=== PATIENT | female | born 1970 | race Caucasian/White ===

== ENCOUNTER → 2021-07-29 14:23 | Outpatient (CLI) | payer OTHER, SELFPAY ==
[2021-07-29 15:18] LABS: COVID19 -Nasal RAPID POSITIVE (Negative)
== END ==
PROVIDERS: Visit Provider Physician Assistant
DX: U07.1 COVID-19 (principal)
CPT/HCPCS: 87635

== ENCOUNTER → 2021-10-07 15:20 | Outpatient (CLI) | payer OTHER, SELFPAY | PROVIDERS: Referring Provider Internal Medicine; Visit Provider Internal Medicine | DX: Z23 Encounter for immunization (principal) | CPT/HCPCS: 90471; 90686 ==

== ENCOUNTER → 2022-09-11 13:13 | Outpatient (CLI) | payer OTHER, SELFPAY | PROVIDERS: Referring Provider Internal Medicine; Visit Provider Internal Medicine | DX: Z23 Encounter for immunization (principal) | CPT/HCPCS: 90471; 90686 ==

== ENCOUNTER → 2022-11-13 06:26 | Outpatient (CLI) | payer OTHER, SELFPAY ==
[2022-11-13 08:10] LABS: Hemoglobin 15.3 g/dL (12.0-16.0); Mean Corpuscular HGB Conc 34.9 % (30-36); Mean Corpuscular Hemoglobin 28.6 PG (26-34); Platelet Count 363 X10^3/uL (150-400); Red Blood Cell Count 5.36 X10^6/uL (4.0-5.2); Red Cell Distribution Width 13.1 % (11.6-14.8); White Blood Cell Count 7.4 X10^3/uL (4.5-11.0)
[2022-11-13 08:48] LABS: Alanine Aminotransferase 62 IU/L (<35); Albumin 4.4 g/dL (3.5-5.0); Albumin Globulin Ratio 1.3 (1.0-2.8); Alkaline Phosphatase 88 U/L (38-126); Aspartate Aminotransferase 37 IU/L (14-36); BUN Creatinine Ratio 17.8 (6-22); Blood Urea Nitrogen 13 mg/dL (7-17); Calcium 9.3 mg/dL (8.4-10.2); Carbon Dioxide 25 mmol/L (22-32); Chloride 103 mmol/L (98-107); Cholesterol 259 mg/dL (140-199); Estimated Glomerular Filt Rate > 60 mL/min (>60); Globulin 3.4 g/dL (1.7-4.1); Glucose 116 mg/dL (70-100); HDL Cholesterol 64 mg/dL (40-60); HEMOLYSIS < 15 (0-50); LDL Cholesterol Calculated 172 mg/dL (<100); Potassium 4.5 mmol/L (3.4-5.1); Sodium 138 mmol/L (137-145); Total Protein 7.8 g/dL (6.3-8.2); Triglycerides 116 mg/dL (35-150)
[2022-11-13 09:19] LABS: TSH w/ Reflex to FT4 2.72 uIU/mL (0.47-4.68)
== END ==
PROVIDERS: Referring Provider Registered Nurse Diabetes Educator; Visit Provider Registered Nurse Diabetes Educator
DX: E78.5 Hyperlipidemia, unspecified (principal); I10 Essential (primary) hypertension
CPT/HCPCS: 36415; 80053; 80061; 84443; 85027

== ENCOUNTER → 2022-12-08 14:50 | Outpatient (CLI) | payer OTHER, SELFPAY ==
--- NOTE | 2022-12-08 14:52 | DI.MG.S_ITS ---
BILATERAL DIGITAL SCREENING MAMMOGRAM 3D/2D WITH CAD: 12/08/2022 CLINICAL: Routine screening. Comparison is made to exams dated: 06/18/2017 mammogram and 06/24/2015 mammogram - [facility]. There are scattered areas of fibroglandular density in both breasts (category b / 25%-50% glandular tissue). Current study was also evaluated with a Computer Aided Detection (CAD) system. No significant masses, calcifications, or other findings are seen in either breast. There has been no significant interval change. IMPRESSION: NEGATIVE There is no mammographic evidence of malignancy. A 1 year screening mammogram is recommended. Based on the Tyrer Cuzick model (a risk assessment model) the patient's lifetime risk is 6.1% and her 10 year risk is 1.5%. According to the ACR, ACS, and NCCN guidelines, an annual breast MRI exam along with mammogram is recommended if the patient's lifetime risk is 20% or greater. This exam was interpreted at Station ID: [id number]. NOTE: For mammograms, a report in lay terms will be sent to the patient. Approximately 15% of breast malignancies will not be visualized mammographically. In the management of a palpable breast mass, a negative mammogram must not discourage biopsy of a clinically suspicious lesion. Electronically Signed By: Tawanda xie/derrick:12/08/2022 17:03:52 letter sent: Normal Exam ACR BI-RADS Category 1: Negative 3341F
== END ==
PROVIDERS: PCP Registered Nurse Diabetes Educator; Referring Provider Registered Nurse Diabetes Educator; Visit Provider Registered Nurse Diabetes Educator
DX: Z12.31 Encounter for screening mammogram for malignant neoplasm of breast (principal)
CPT/HCPCS: 77063; 77067

== ENCOUNTER 2023-01-12 07:16 | Day surgery (SDC) | payer OTHER, SELFPAY ==
--- NOTE | 2023-01-12 | PATH_ITS ---
[facility] Accession Number: [id number] No. of containers..01 Tissue . 01 Material submitted: . colon - SIGMOID COLON POLYP X2 . 01 Diagnosis: Sigmoid Colon, Polyp x2, Biopsy: Fragments of tubular adenoma and hyperplastic polyp. [facility] 01/18/2023 0938 Local . 01 Electronically signed: . Wendie Torres MD, Pathologist NPI- [id number] . 01 Gross description: . SIGMOID COLON POLYP X2: Received in formalin are 4 fragment(s) of tolentino, soft tissue measuring 0.3 x 0.2 x 0.2 cm to 0.2 x 0.1 x 0.1 cm submitted entirely in 1 cassette(s) /CPE 01/14/2023 0723 Local . 01 Pathologist provided ICD-10: D12.5 . 01 CPT . 786975 Specimen Comment: A courtesy copy of this report has been sent to [phone] Performed at: 01 [facility] [address] [place] [address] [address], [place], [place] [id number] MD Paddy Albarran MD Phone: [phone]
[2023-01-12 07:44] VITALS: BP 178/95; PULSE 76; RESP 16; TEMP 36.2; O2SAT 97; BMI 51.0
[2023-01-12] MEDS: LACTATED RINGERS 1,000 ML 200 ML IV (07:55)
--- NOTE | 2023-01-12 08:24 | PM.HP.1 ---
History of Present Illness History of Present Illness Date Patient Seen: 01/12/23 Time Patient Seen: 08:24 Chief complaint: Screening Colonoscopy Narrative: The patient presents for colorectal screening. They have never had any previous examination for such. No personal or family history of colon cancer. On further history denies any recent gastrointestinal symptoms. No nausea, vomiting, abdominal pain, loss of appetite, unexplained weight loss, change in bowel habits, or blood per rectum. Patient History Medical History Anemia (~2013) Basal cell carcinoma (~2006) Carpal tunnel syndrome (~2020) Chicken pox (~1986) Dyslipidemia Essential hypertension GERD (gastroesophageal reflux disease) (~2017) Headache (~2020) Heavy menstrual period (~2017) Impaired fasting blood sugar Ovarian cyst (~1990) Recurrent sinusitis Sleep apnea (~2014) Vision disorder Surgical History Anesthesia History of section (~03/07/95) Family & Social History Family History Father History of heart disease Hypertension Hyperlipidemia Mental health problem Stroke Mother Fibromyalgia Arthritis History of blood clots Diabetes mellitus Hypertension Hyperlipidemia Brother Epilepsy Addiction Hypertension Hyperlipidemia Brother Addiction Grandfather Cancer Grandfather History of heart disease Grandmother History of heart disease Hypertension Hyperlipidemia Family/Other Addiction Family/Other Addiction Social History: household members spouse Tobacco & Substance use: Smoking Status Former smoker alcohol intake never Substance Use Type does not use Meds Home Medications and Allergies Home Medications Medication Instructions Recorded Confirmed Type albuterol sulfate 90 mcg/actuation 2 puff inhalation Q4-6H PRN 11/18/22 01/12/23 Rx aerosol inhaler shortness of breath or wheezing #8.5 grams cetirizine 5 mg-pseudoephedrine ER 1 tab PO DAILY 11/18/22 01/12/23 History 120 mg tablet,extended release,12hr (Zyrtec-D) esomeprazole magnesium 40 mg 40 mg PO DAILY 11/18/22 01/12/23 History capsule,delayed release (Nexium) fluticasone propionate 50 2 spray intranasal DAILY 11/18/22 01/12/23 History mcg/actuation nasal spray,suspension Allergies Allergy/AdvReac Type Severity Reaction Status Date / Time No Known Drug Allergies Allergy Verified 01/12/23 07:39 Exam Vital Signs (past 8 hours): - 01/12/23 07:44 Temperature 97.1 F L Pulse Rate 76 Respiratory Rate 16 Blood Pressure 178/95 H Pulse Oximetry 97 Oxygen Delivery Method Room Air Oxygen Delivery Method Room Air Narrative Exam Narrative: General adult woman alert oriented no acute distress Abdomen soft nontender nondistended Assessment & Plan Assessment & Plan narrative: The patient requires colorectal screening and colonoscopy is recommended. Technical details were discussed. Risks, benefits, alternatives explained. Risks including but not limited to myocardial infarction, aspiration, bleeding, pain, missed lesion, incomplete examination, need for further radiographic studies, colonic perforation, and need for major abdominal surgery were discussed. All questions were answered to their satisfaction, and they are in agreement with this plan. Time Spent With Patient Critical Care time: I spent a total of [] minutes of critical care time on this patient's care today; this time is exclusive of procedural time.
--- NOTE | 2023-01-12 08:29 | PM.OP.COLON ---
Operative Date/Time/Diagnoses Date of procedure: 01/12/23 Time of procedure: 08:29 Pre-op diagnosis: Colorectal screening Post-op diagnosis: other (Colonic polyps x2) Procedure & Clinicians Study performed: Colonoscopy Same procedure as scheduled: Yes Indications: Colorectal screening Surgeon: Michael Monge Procedure Notes Procedure in detail: The history and physical was performed/updated and the patient is ASA class is 2. The procedure was discussed in detail with the patient. Potential risks complications including infection, bleeding, missed diagnosis, perforation, need for surgery, and were explained. Their questions were answered and informed consent was obtained. Patient was brought to the procedure room and placed standard monitoring equipment. The patient's vital signs were monitored continuously throughout the entire procedure. Prior to starting time-out was performed. The patient was placed in the left lateral recumbent position. Procedural sedation was administered by anesthesia. Examination began with a thorough inspection of the perianal area there was no evidence of fissures, fistulae, external hemorrhoids or cutaneous malignancy. The colonoscopy scope was then placed into the anal canal and was advanced to the cecum, which was identified by the ileocecal valve, the appendiceal orifice and the confluence of the taenia. The scope was then slowly withdrawn examining colon thoroughly in all directions, irrigating it of any residual stool. Within the sigmoid colon there were 2 polyps both less than 1 cm which were removed with biopsy forceps in entirety. The colon was notable for bojorquez diverticulosis. The patient tolerated the procedure well. They will be discharged once criteria are met. The prep was of good/excellent quality. The withdrawl time was 7 minutes. Specimen(s): other (Sigmoid colon polyps x2) Complications: none Impression: Colonic polyps x2 Post-procedure Recommendations: High fiber diet Plan for aftercare: Follow-up is dependent on pathology findings Disposition: same day surgery
[2023-01-12 09:05] VITALS: BP 178/112; PULSE 70; RESP 19; TEMP 36.3; O2SAT 97
[2023-01-12 09:11] VITALS: BP 183/106; PULSE 68; RESP 18; TEMP 36.3; O2SAT 98
[2023-01-12 09:17] VITALS: BP 183/106; PULSE 62; RESP 16; TEMP 36.3; O2SAT 93
[2023-01-12 09:25] VITALS: BP 179/95; PULSE 61; RESP 16; TEMP 36.4; O2SAT 99
== END 2023-01-12 09:32 | disposition home or self-care (01) ==
PROVIDERS: PCP Registered Nurse Diabetes Educator; Referring Provider Surgery; Visit Provider Surgery
PROC: 0DJD8ZZ Inspection of Lower Intestinal Tract, Via Natural or Artificial Opening Endoscopic (ICD-10-PCS; CPT 45378; principal; 2023-01-12 08:30)
DX: Z12.11 Encounter for screening for malignant neoplasm of colon (principal); K57.30 Diverticulosis of large intestine without perforation or abscess without bleeding
CPT/HCPCS: 45380; J2704

== ENCOUNTER → 2023-02-10 14:53 | Outpatient (CLI) | payer OTHER, SELFPAY ==
[2023-02-10 16:24] LABS: Alanine Aminotransferase 53 IU/L (<35); Albumin 4.3 g/dL (3.5-5.0); Albumin Globulin Ratio 1.3 (1.0-2.8); Alkaline Phosphatase 80 U/L (38-126); Aspartate Aminotransferase 33 IU/L (14-36); Bilirubin Total 0.7 mg/dL (0.2-1.3); Bilirubin Unconjugated 0.4 mg/dL (0.0-1.1); Globulin 3.2 g/dL (1.7-4.1); Glucose 112 mg/dL (70-100); HEMOLYSIS < 15 (0-50); Total Protein 7.5 g/dL (6.3-8.2)
[2023-02-11 11:00] LABS: Labcorp Hemoglobin (Hb) A1c 5.7 % (4.8-5.6)
== END ==
PROVIDERS: PCP Registered Nurse Diabetes Educator; Referring Provider Registered Nurse Diabetes Educator; Visit Provider Registered Nurse Diabetes Educator
DX: E78.5 Hyperlipidemia, unspecified (principal); R73.01 Impaired fasting glucose; R74.8 Abnormal levels of other serum enzymes
CPT/HCPCS: 36415; 80076; 82947; 83036

== ENCOUNTER → 2023-02-11 06:48 | Outpatient (CLI) | payer OTHER, SELFPAY ==
[2023-02-11 09:02] LABS: Cholesterol 256 mg/dL (140-199); HDL Cholesterol 67 mg/dL (40-60); LDL Cholesterol Calculated 166 mg/dL (<100); Triglycerides 116 mg/dL (35-150)
== END ==
PROVIDERS: PCP Registered Nurse Diabetes Educator; Referring Provider Registered Nurse Diabetes Educator; Visit Provider Registered Nurse Diabetes Educator
DX: E78.5 Hyperlipidemia, unspecified (principal); R73.01 Impaired fasting glucose; R74.8 Abnormal levels of other serum enzymes
CPT/HCPCS: 36415; 80061

== ENCOUNTER → 2023-03-06 12:28 | Outpatient (CLI) | payer OTHER, SELFPAY ==
[2023-03-06 14:18] LABS: HEMOLYSIS < 15 (0-50); Iron 101 ug/dL (37-170)
[2023-03-06 14:29] LABS: Percent Iron Saturation 36 % (15-50); Total Iron Binding Capacity 281 ug/dL (265-497); Transferrin 225 mg/dL (206-381)
[2023-03-06 14:55] LABS: Ferritin 83 ng/mL (11-264)
[2023-03-09 19:50] LABS: Hepatitis B Surface Antigen NEGATIVE s/c (NEGATIVE)
[2023-03-09 20:10] LABS: Hep C Virus Ab w/Reflex Quant NEGATIVE s/c (NEGATIVE)
== END ==
PROVIDERS: PCP Registered Nurse Diabetes Educator; Referring Provider Registered Nurse Diabetes Educator; Visit Provider Registered Nurse Diabetes Educator
DX: R74.8 Abnormal levels of other serum enzymes (principal)
CPT/HCPCS: 36415; 82728; 83540; 83550; 86803; 87340

== ENCOUNTER → 2023-03-12 14:23 | Outpatient (CLI) | payer OTHER, SELFPAY ==
--- NOTE | 2023-03-12 14:24 | DI.US.S_ITS ---
PROCEDURE: US ABDOMEN LIMITED INDICATIONS: RUQ US, ELEVATED LIVER ENZYMES TECHNIQUE: Real-time focused scanning was performed of the abdomen, with image documentation. COMPARISON: None. FINDINGS: The liver demonstrates enlarged size. The liver demonstrates generalized moderately increased echogenicity. This decreases ultrasound sensitivity for detection of hepatic masses. No findings of gallstones or sludge are seen. The gallbladder wall is not thickened, measuring 3 mm or less. No specific pericholecystic fluid is seen. The sonographic Olivia sign is negative. There is no biliary dilatation, the common bile duct measures 5 mm. The pancreas is not well seen, secondary to overlying bowel gas. This study is further limited by body habitus. IMPRESSION: An enlarged, fatty liver can be seen. The gallbladder demonstrates a normal sonographic appearance. No biliary dilatation is seen. Dictated by: Lawson Dasilva M.D. on 03/12/2023 at 15:17 Approved by: Lawson Dasilva M.D. on 03/12/2023 at 15:18
== END ==
PROVIDERS: PCP Registered Nurse Diabetes Educator; Referring Provider Registered Nurse Diabetes Educator; Visit Provider Registered Nurse Diabetes Educator
DX: R74.8 Abnormal levels of other serum enzymes (principal); K76.0 Fatty (change of) liver, not elsewhere classified
CPT/HCPCS: 76705

== ENCOUNTER → 2023-07-14 05:52 | Outpatient (CLI) | payer OTHER, SELFPAY ==
[2023-07-14 08:12] LABS: Hemoglobin A1C% w Est Avg Glu 5.7 % (4.0-6.0)
[2023-07-14 08:15] LABS: Add Manual Diff / Slide Review NO; Basophils Absolute Auto 0 /uL (0-100); Basophils Percent Auto 0.6 % (0-2); Eosinophils Absolute Auto 200 /uL (0-450); Eosinophils Percent Auto 2.1 % (2-4); Hematocrit 42.5 % (36-46); Hemoglobin 14.7 g/dL (12.0-16.0); Lymphocytes Absolute Auto 2300 /uL (1100-4500); Lymphocytes Percent Auto 30.6 % (25-40); Mean Corpuscular HGB Conc 34.5 % (30-36); Mean Corpuscular Hemoglobin 28.1 PG (26-34); Mean Corpuscular Volume 81.5 fL (80-100); Monocytes Absolute Auto 500 /uL (0-900); Monocytes Percent Auto 7.3 % (3-14); Neutrophils Absolute Auto 4400 /uL (1500-7000); Neutrophils Percent Auto 59.4 % (50-75); Platelet Count 345 X10^3/uL (150-400); Red Blood Cell Count 5.21 X10^6/uL (4.0-5.2); Red Cell Distribution Width 13.6 % (11.6-14.8); White Blood Cell Count 7.5 X10^3/uL (4.5-11.0)
[2023-07-14 08:23] LABS: HEMOLYSIS < 15 (0-50); Iron 108 ug/dL (37-170)
[2023-07-14 08:32] LABS: Alanine Aminotransferase 68 IU/L (<35); Albumin 4.6 g/dL (3.5-5.0); Albumin Globulin Ratio 1.6 (1.0-2.8); Alkaline Phosphatase 79 U/L (38-126); Aspartate Aminotransferase 39 IU/L (14-36); BUN Creatinine Ratio 28.4 (6-22); Bilirubin Total 0.9 mg/dL (0.2-1.3); Blood Urea Nitrogen 19 mg/dL (7-17); Calcium 9.5 mg/dL (8.4-10.2); Carbon Dioxide 26 mmol/L (22-32); Chloride 102 mmol/L (98-107); Cholesterol 238 mg/dL (140-199); Estimated Glomerular Filt Rate > 60 mL/min (>60); Globulin 2.9 g/dL (1.7-4.1); Glucose 112 mg/dL (70-100); HDL Cholesterol 49 mg/dL (40-60); HEMOLYSIS < 15 (0-50); LDL Cholesterol Calculated 161 mg/dL (<100); Magnesium 2.1 mg/dL (1.6-2.3); Potassium 3.8 mmol/L (3.4-5.1); Sodium 139 mmol/L (137-145); Total Protein 7.5 g/dL (6.3-8.2); Triglycerides 139 mg/dL (35-150)
[2023-07-14 08:34] LABS: Percent Iron Saturation 35 % (15-50); Total Iron Binding Capacity 308 ug/dL (265-497); Transferrin 233 mg/dL (206-381)
[2023-07-14 08:41] LABS: Vitamin D 25 Hydroxy (D3) 21.9 ng/mL (30.0-100.0)
[2023-07-14 08:55] LABS: Thyroid Stimulating Hormone 3.18 uIU/mL (0.47-4.68)
[2023-07-14 09:17] LABS: Vitamin B12 637 pg/mL (239-931)
[2023-07-20 08:36] LABS: Vitamin B1 156.1 nmol/L (66.5-200.0)
[2023-07-20 11:14] LABS: Hemolysate 443.7 ng/mL (Not Estab.)
== END ==
PROVIDERS: PCP Registered Nurse Diabetes Educator; Referring Provider Surgery; Visit Provider Surgery
DX: E66.01 Morbid (severe) obesity due to excess calories (principal); Z68.43 Body mass index [BMI] 50.0-59.9, adult; I10 Essential (primary) hypertension; K76.0 Fatty (change of) liver, not elsewhere classified; E78.5 Hyperlipidemia, unspecified; R73.03 Prediabetes
CPT/HCPCS: 36415; 80053; 80061; 82306; 82607; 82747; 83036; 83540; 83550; 83735; 84425; 84443; 85014; 85025

== ENCOUNTER → 2023-08-05 11:21 | Outpatient (CLI) | payer OTHER, SELFPAY ==
[2023-08-06 21:07] LABS: Folate, RBC 1059 ng/mL (>498); Hematocrit 42.9 % (34.0-46.6); Hemolysate 454.4 ng/mL (Not Estab.)
== END ==
PROVIDERS: PCP Registered Nurse Diabetes Educator; Referring Provider Surgery; Visit Provider Surgery
DX: E66.01 Morbid (severe) obesity due to excess calories (principal); Z68.45 Body mass index [BMI] 70 or greater, adult; I10 Essential (primary) hypertension; K76.0 Fatty (change of) liver, not elsewhere classified; E78.5 Hyperlipidemia, unspecified; R73.03 Prediabetes
CPT/HCPCS: 82747; 85014

== ENCOUNTER → 2023-08-06 03:13 | Outpatient (CLI) | payer OTHER, SELFPAY | PROVIDERS: PCP Registered Nurse Diabetes Educator; Referring Provider Family Medicine; Visit Provider Family Medicine | DX: Z23 Encounter for immunization (principal) | CPT/HCPCS: 90471; 90686 ==

== ENCOUNTER → 2023-12-10 08:10 | Outpatient (CLI) | payer OTHER, SELFPAY ==
--- NOTE | 2023-12-10 08:12 | DI.MG.S_ITS ---
BILATERAL DIGITAL SCREENING MAMMOGRAM 3D/2D WITH CAD: 12/10/2023 CLINICAL: Routine screening. Comparison is made to exams dated: 12/08/2022 mammogram, 06/18/2017 mammogram, and 06/24/2015 mammogram - [facility]. Both breasts are heterogeneously dense, which may obscure small masses (category c / 51-75% glandular tissue). Current study was also evaluated with a Computer Aided Detection (CAD) system. No significant masses, calcifications, or other findings are seen in either breast. There has been no significant interval change. IMPRESSION: NEGATIVE There is no mammographic evidence of malignancy. A 1 year screening mammogram is recommended. Based on the Tyrer Cuzick model (a risk assessment model) the patient's lifetime risk is 9.1% and her 10 year risk is 2.3%. According to the ACR, ACS, and NCCN guidelines, an annual breast MRI exam along with mammogram is recommended if the patient's lifetime risk is 20% or greater. This exam was interpreted at Station ID: [id number]. NOTE: For mammograms, a report in lay terms will be sent to the patient. Approximately 15% of breast malignancies will not be visualized mammographically. In the management of a palpable breast mass, a negative mammogram must not discourage biopsy of a clinically suspicious lesion. Electronically Signed By: Landon cline/derrick:12/10/2023 12:27:45 letter sent: Normal Exam ACR BI-RADS Category 1: Negative 3341F
== END ==
LOC: MAMMO 08:11
PROVIDERS: PCP Registered Nurse Diabetes Educator; Referring Provider Registered Nurse Diabetes Educator; Visit Provider Registered Nurse Diabetes Educator
DX: Z12.31 Encounter for screening mammogram for malignant neoplasm of breast (principal); R92.333 Mammographic heterogeneous density, bilateral breasts
CPT/HCPCS: 77063; 77067

== ENCOUNTER → 2024-02-02 06:38 | Outpatient (CLI) | payer OTHER, SELFPAY ==
[2024-02-02 08:09] LABS: Hematocrit 44.2 % (36-46); Mean Corpuscular Hemoglobin 28.1 PG (26-34); Mean Corpuscular Volume 82.8 fL (80-100); Platelet Count 334 X10^3/uL (150-400); Red Blood Cell Count 5.34 X10^6/uL (4.0-5.2); Red Cell Distribution Width 13.7 % (11.6-14.8)
[2024-02-02 08:15] LABS: Hemoglobin A1C% w Est Avg Glu 5.5 % (4.0-6.0)
[2024-02-02 08:30] LABS: Alanine Aminotransferase 81 IU/L (<35); Albumin 4.3 g/dL (3.5-5.0); Albumin Globulin Ratio 1.3 (1.0-2.8); Alkaline Phosphatase 69 U/L (38-126); Aspartate Aminotransferase 40 IU/L (14-36); BUN Creatinine Ratio 25.8 (6-22); Blood Urea Nitrogen 16 mg/dL (7-17); Calcium 9.7 mg/dL (8.4-10.2); Carbon Dioxide 27 mmol/L (22-32); Chloride 106 mmol/L (98-107); Cholesterol 182 mg/dL (140-199); Estimated Glomerular Filt Rate > 60 mL/min (>60); Globulin 3.2 g/dL (1.7-4.1); Glucose 100 mg/dL (70-100); HDL Cholesterol 39 mg/dL (40-60); HEMOLYSIS < 15 (0-50); LDL Cholesterol Calculated 124 mg/dL (<100); Potassium 4.1 mmol/L (3.4-5.1); Sodium 141 mmol/L (137-145); Total Protein 7.5 g/dL (6.3-8.2); Triglycerides 96 mg/dL (35-150)
[2024-02-02 08:55] LABS: TSH w/ Reflex to FT4 2.59 uIU/mL (0.47-4.68)
== END ==
LOC: LAB 06:39
PROVIDERS: PCP Registered Nurse Diabetes Educator; Referring Provider Registered Nurse Diabetes Educator; Visit Provider Registered Nurse Diabetes Educator
DX: K76.0 Fatty (change of) liver, not elsewhere classified (principal); I10 Essential (primary) hypertension; E78.5 Hyperlipidemia, unspecified; R73.01 Impaired fasting glucose
CPT/HCPCS: 36415; 80053; 80061; 83036; 84443; 85027

== ENCOUNTER 2024-04-07 07:30 | Outpatient (RCR) | payer OTHER, SELFPAY ==
--- NOTE | 2024-03-31 15:52 | PT.OIE ---
Current Diagnoses Other meniscus derangements, unspecified medial meniscus, right knee (03/31/24) Pain in right knee (03/31/24) Stiffness of left knee, not elsewhere classified (03/31/24) Past Medical History (Last Reviewed 03/24/24 @ 16:34 by MARICEL Ruvalcaba) Anemia (~2013) Basal cell carcinoma (~2006) Carpal tunnel syndrome (~2020) Chicken pox (~1986) Dyslipidemia Essential hypertension Essential hypertension Fatty liver disease, nonalcoholic GERD (gastroesophageal reflux disease) (~2017) Headache (~2020) Heavy menstrual period (~2017) Impaired fasting blood sugar Ovarian cyst (~1990) Recurrent sinusitis Sleep apnea (~2014) Vision disorder Past Surgical History (Last Reviewed 03/24/24 @ 16:34 by MARICEL Ruvalcaba) Anesthesia History of section (~03/07/95) Status post gastric bypass for obesity Visit Care Team Role Provider Type MARICEL Ruvalcaba Attending Provider Advanced Thermit Welding Machine Operator Family Provider Primary Care Provider Referring Provider Specialty: Medical Address: [address] [place] [address], [facility] Email: [email or web address] Physical Therapy Initial Evaluation PT-OP-A Visit Information Start: 03/31/24 15:21 Freq: Status: Active Protocol: Document 03/31/24 12:00 DCW (Rec: 03/31/24 15:42 DCW [id number]) Out-Patient Physical Therapy Visit Information Visit Information Visit Type Initial Evaluation Visit Start Time 12:00 Visit Stop Time 12:40 Visit Number 1 Number of INSURANCE AND BENEFITS CLERK Visits 0 Evaluation Information Evaluation Date 03/31/24 PT-OP-B Current Condition Start: 03/31/24 15:21 Freq: Status: Active Protocol: Document 03/31/24 12:00 DCW (Rec: 03/31/24 15:42 DCW [id number]) Current Condition History of Current Condition Onset Date 10 year history Current Complaints right knee pain/stiffness, history of meniscus tear History of Current Condition Pt is a 53 year old female presenting with new onset of pain 10 years s/p right medial meniscus tear. Pt reports initial tear ten years ago did well with PT, recovered without need of surgical intervention, and has been doing well overall. Has recently undergone gastric bypass, and has been active walking, has lost weight. Unfortunately, ~1 month ago, when sleeping in bed, pt somehow bent her right leg up under herself and experienced an increase in right knee pain . Pt reports pain is very similar to pain ten years ago. Immediately after injury, pt notes her knee was buckling, however it has no longer been giving out, but has been feeling like it locks up. Increased pain with standing > 45 minutes, has impacted her continuing walking, although currently keeps walking even after pain begins. Hoping for a repeat of ten years ago when she was able to resolve her pain with help of PT. Admits that it does seem like the pain has been increasing in severity over the past month Treatment Goals Patient/Caregiver Goals Return to pain-free walking to keep up with exercise plan to continue weight loss journey s /p gastric bypass PT-OP-C Subjective Start: 03/31/24 15:21 Freq: Status: Active Protocol: Document 03/31/24 12:00 DCW (Rec: 03/31/24 15:42 DCW [id number]) OP-PT Subjective Patient Comments Patient Comments It hurts when I walk, but I just keep going. Patient Questionnaires Lower Extremity Functional Scale LEFS Score 37/80 = 46.25% LEFS Impairment 40 to 59% Impaired (Score 32- 47) PT-OP-F Manual Assessment Start: 03/31/24 15:21 Freq: Status: Active Protocol: Document 03/31/24 12:00 DCW (Rec: 03/31/24 15:42 DCW [id number]) Manual Assessments Soft Tissue Assessment Soft Tissue Mobility Assessment Mild tenderness to palpation along right medial joint line, no notable edema/joint effusion PT-OP-K Range of Motion Start: 03/31/24 15:21 Freq: Status: Active Protocol: Document 03/31/24 12:00 DCW (Rec: 03/31/24 15:42 DCW [id number]) Knee Goniometric Range of Motion Knee Left Patient Position Supine Flexion Active (degrees) 134 Extension Active (degrees) 0 Right Patient Position Supine Flexion Active (degrees) 103 Extension Active (degrees) 0 PT-OP-L Special Tests Start: 03/31/24 15:21 Freq: Status: Active Protocol: Document 03/31/24 12:00 DCW (Rec: 03/31/24 15:42 [facility] [id number]) Special Tests Knee Special Tests Varus- 25 Degrees Test Results Medial joint pain Valgus- 25 Degrees Test Results Negative Posterior Draw Test Results Negative Patellar Grind Test Test Results Negative Patella Tap Test Results Negative Rosales Test Test Results Positive Right Bounce Home Test Results Negative Apprehension Test Test Results Negative Apley's Compression Test Results Positive Right Anterior Draw Test Results Negative PT-OP-M Strength Start: 03/31/24 15:21 Freq: Status: Active Protocol: Document 03/31/24 12:00 DCW (Rec: 03/31/24 15:42 [facility] [id number]) Knee Strength Knee Manual Muscle Testing Right Flexion (S2) 4+ Good+ Extension (L3) 4 Good PT-OP-Q Treatments Start: 03/31/24 15:21 Freq: Status: Active Protocol: Document 03/31/24 12:00 DCW (Rec: 03/31/24 15:42 [facility] [id number]) Therapeutic Exercises Supine Exercises SLR /c ER Supine Exercise Name SLR /c ER Side right Reps/Minutes x10 Comments HEP SLR Supine Exercise Name SLR Side right Reps/Minutes x10 Comments HEP Sitting Exercises Hamstring Curl Sitting Exercise Name HS Curl Side right Resistance Lv 3 Reps/Minutes x10 Comments HEP Standing Exercises Wall Squat Standing Exercise Name Wall Squat Reps/Minutes x10 Comments HEP TKE Standing Exercise Name TKE Side right Resistance Lv 3 Reps/Minutes x10 Comments HEP PT-OP-T Assessment and Plan Start: 03/31/24 15:21 Freq: Status: Active Protocol: Document 03/31/24 12:00 DCW (Rec: 03/31/24 15:52 [facility] [id number]) Physical Therapy Assessment Rehab Potential Rehabilitation Potential Good Evaluation Complexity Number of Personal Factors/Comorbidities 3 or More Number of Body Systems Impaired 1-2 Clinical Presentation at Evaluation Evolving Impairments Impairments Functional Activities, Functional Mobility,Gait,Pain, ROM,Soft Tissue Mobility, Strength,Tone Goals Two Impairment Pt experiences increased leg pain is walking more than 45 minutes Time Study Engineer Goal (LTG) Pt to return to walking four miles daily without knee pain in order to return to increased activity levels she began following Gastric Bypass surgery. LTG Duration 05/31/24 One Impairment Pt does not have an appropriate home exercise program Short Term Goal (STG) Pt to be independent and compliant with an appropriate HEP STG Duration 04/30/24 Assessment Summary Assessment Pt presents with signs and symptoms consistent with right meniscus involvement. Due to pt's history of right knee injury, it is difficult to determine if pt worsened old injury, irritated old injury, or caused new injury to meniscus. Pt is limited somewhat in right knee flexion ROM, however overall is not too impacted with strength, is able to perform job activities and walk for ~45 minutes without too much pain, so more likely than not injury is relatively mild tear or a sprain, however history of prior tear could be cause for concern of further damage. Pt should benefit from skilled therapy focusing on ROM/flexibility within pain- free motion, as well as strengthening of quads/ hamstrings to assist with stabilization of knee. If pt does not progress as expected with therapeutic intervention, may benefit from further advanced imaging in the future . Physical Therapy Plan Frequency and Duration Frequency of Treatment 2x/Week Plan of Care Start Date 03/31/24 Plan of Care End Date 05/31/24 Therapeutic Interventions Therapeutic Interventions Balance Training,Gait Training ,Home Exercise Program,Joint Mobilizations,Manual Therapy, Neuromuscular Re-education, Patient/Caregiver Education, Self-Care/Home Management,Soft Tissue Mobilization, Therapeutic Activities, Therapeutic Exercises Modalities Cold Pack/Ice Massage,Electric Stimulation,Hot Packs, Ultrasound Next Visit Focus/Plan Next Note Type Treatment Note Next Visit Plan Quad/hamstring strengthening, knee stabilization
--- NOTE | 2024-03-31 15:53 | PT.OPPOC ---
Physical, Occupational & Speech Therapy At [facility] Current Diagnoses Other meniscus derangements, unspecified medial meniscus, right knee (03/31/24) Pain in right knee (03/31/24) Stiffness of left knee, not elsewhere classified (03/31/24) Visit Care Team Role Provider Type MARICEL Ruvalcaba Attending Provider Advanced Burn Out Scarfing Operator Family Provider Primary Care Provider Referring Provider Specialty: Medical Address: [address] [place] [address], [facility] Email: [email or web address] Plan Of Care PT-OP-T Assessment and Plan Start: 03/31/24 15:21 Freq: Status: Active Protocol: Document 03/31/24 12:00 DCW (Rec: 03/31/24 15:52 DCW [id number]) Physical Therapy Assessment Rehab Potential Rehabilitation Potential Good Evaluation Complexity Number of Personal Factors/Comorbidities 3 or More Number of Body Systems Impaired 1-2 Clinical Presentation at Evaluation Evolving Impairments Impairments Functional Activities, Functional Mobility,Gait,Pain, ROM,Soft Tissue Mobility, Strength,Tone Goals Two Impairment Pt experiences increased leg pain is walking more than 45 minutes Health And Human Performance Professor Goal (LTG) Pt to return to walking four miles daily without knee pain in order to return to increased activity levels she began following Gastric Bypass surgery. LTG Duration 05/31/24 One Impairment Pt does not have an appropriate home exercise program Short Term Goal (STG) Pt to be independent and compliant with an appropriate HEP STG Duration 04/30/24 Assessment Summary Assessment Pt presents with signs and symptoms consistent with right meniscus involvement. Due to pt's history of right knee injury, it is difficult to determine if pt worsened old injury, irritated old injury, or caused new injury to meniscus. Pt is limited somewhat in right knee flexion ROM, however overall is not too impacted with strength, is able to perform job activities and walk for ~45 minutes without too much pain, so more likely than not injury is relatively mild tear or a sprain, however history of prior tear could be cause for concern of further damage. Pt should benefit from skilled therapy focusing on ROM/flexibility within pain- free motion, as well as strengthening of quads/ hamstrings to assist with stabilization of knee. If pt does not progress as expected with therapeutic intervention, may benefit from further advanced imaging in the future . Physical Therapy Plan Frequency and Duration Frequency of Treatment 2x/Week Plan of Care Start Date 03/31/24 Plan of Care End Date 05/31/24 Therapeutic Interventions Therapeutic Interventions Balance Training,Gait Training ,Home Exercise Program,Joint Mobilizations,Manual Therapy, Neuromuscular Re-education, Patient/Caregiver Education, Self-Care/Home Management,Soft Tissue Mobilization, Therapeutic Activities, Therapeutic Exercises Modalities Cold Pack/Ice Massage,Electric Stimulation,Hot Packs, Ultrasound Next Visit Focus/Plan Next Note Type Treatment Note Next Visit Plan Quad/hamstring strengthening, knee stabilization Plan of Care Dates Plan of Care Start Date 03/31/24 Plan of Care End Date 05/31/24 Electronically Signed by: Derek Alfonso, PT 03/31/24 5611 If you are in agreement with this Plan of Care, please return a signed and dated copy. I have reviewed this Plan of Care and certify that the skilled therapy services above are required to meet the patient?s needs. Physician Signature Date Printed Name and Credentials Clinical Instructor Signature Printed Name and Credentials
--- NOTE | 2024-04-03 15:16 | PT.OTN ---
Current Diagnoses Other meniscus derangements, unspecified medial meniscus, right knee (04/03/24) Pain in right knee (04/03/24) Stiffness of left knee, not elsewhere classified (04/03/24) Physical Therapy Treatment Note PT-OP-A Visit Information Start: 03/31/24 15:21 Freq: Status: Active Protocol: Document 04/03/24 14:30 DCW (Rec: 04/03/24 15:16 DCW [id number]) Out-Patient Physical Therapy Visit Information Visit Information Visit Type Treatment Note Visit Start Time 14:30 Visit Stop Time 15:15 Visit Number 2 Number of BLOCK PAVER Visits 0 Evaluation Information Evaluation Date 03/31/24 PT-OP-B Current Condition Start: 03/31/24 15:21 Freq: Status: Active Protocol: Document 03/31/24 12:00 DCW (Rec: 03/31/24 15:42 DCW [id number]) Current Condition History of Current Condition Onset Date 10 year history Current Complaints right knee pain/stiffness, history of meniscus tear History of Current Condition Pt is a 53 year old female presenting with new onset of pain 10 years s/p right medial meniscus tear. Pt reports initial tear ten years ago did well with PT, recovered without need of surgical intervention, and has been doing well overall. Has recently undergone gastric bypass, and has been active walking, has lost weight. Unfortunately, ~1 month ago, when sleeping in bed, pt somehow bent her right leg up under herself and experienced an increase in right knee pain . Pt reports pain is very similar to pain ten years ago. Immediately after injury, pt notes her knee was buckling, however it has no longer been giving out, but has been feeling like it locks up. Increased pain with standing > 45 minutes, has impacted her continuing walking, although currently keeps walking even after pain begins. Hoping for a repeat of ten years ago when she was able to resolve her pain with help of PT. Admits that it does seem like the pain has been increasing in severity over the past month Treatment Goals Patient/Caregiver Goals Return to pain-free walking to keep up with exercise plan to continue weight loss journey s/p gastric bypass PT-OP-C Subjective Start: 03/31/24 15:21 Freq: Status: Active Protocol: Document 04/03/24 14:30 DCW (Rec: 04/03/24 15:16 DCW [id number]) OP-PT Subjective Patient Comments Patient Comments Pt notes she is doing a lot better. PT-OP-F Manual Assessment Start: 03/31/24 15:21 Freq: Status: Active Protocol: Document 03/31/24 12:00 DCW (Rec: 03/31/24 15:42 DCW [id number]) Manual Assessments Soft Tissue Assessment Soft Tissue Mobility Assessment Mild tenderness to palpation along right medial joint line, no notable edema/joint effusion PT-OP-K Range of Motion Start: 03/31/24 15:21 Freq: Status: Active Protocol: Document 03/31/24 12:00 DCW (Rec: 03/31/24 15:42 DCW [id number]) Knee Goniometric Range of Motion Knee Left Patient Position Supine Flexion Active (degrees) 134 Extension Active (degrees) 0 Right Patient Position Supine Flexion Active (degrees) 103 Extension Active (degrees) 0 PT-OP-L Special Tests Start: 03/31/24 15:21 Freq: Status: Active Protocol: Document 03/31/24 12:00 DCW (Rec: 03/31/24 15:42 DCW [id number]) Special Tests Knee Special Tests Varus- 25 Degrees Test Results Medial joint pain Valgus- 25 Degrees Test Results Negative Posterior Draw Test Results Negative Patellar Grind Test Test Results Negative Patella Tap Test Results Negative Rosales Test Test Results Positive Right Bounce Home Test Results Negative Apprehension Test Test Results Negative Apley's Compression Test Results Positive Right Anterior Draw Test Results Negative PT-OP-M Strength Start: 03/31/24 15:21 Freq: Status: Active Protocol: Document 03/31/24 12:00 DCW (Rec: 03/31/24 15:42 DCW [id number]) Knee Strength Knee Manual Muscle Testing Right Flexion (S2) 4+ Good+ Extension (L3) 4 Good PT-OP-Q Treatments Start: 03/31/24 15:21 Freq: Status: Active Protocol: Document 04/03/24 14:30 DCW (Rec: 04/03/24 15:16 DCW [id number]) Cardio Equipment Recumbent Bicycle Duration (Minutes) 1 Other Stopped d/t pain Gym Equipment Shuttle Recovery Bilateral Squats Resistance 50#->37# Reps/Time Stopped d/t pain Therapeutic Exercises Sitting Exercises Hamstring Curl Sitting Exercise Name HS Curl Side right Resistance Lv 2 Reps/Minutes x10 Comments HEP Standing Exercises Hamstring Curl Standing Exercise Name Hamstring Curl Side bilateral Resistance 5# Lunge Standing Exercise Name Step lunge Other Exercises Resisted Ambulation Other Exercise Name Resisted side-stepping Resistance Green Step-ups Other Exercise Name Step-ups Side right Equipment Used 5 step Manual Therapy Treatment Joint Mobilizations Knee Joint R Knee Direction P<->A Grade III Body Position Hooklying Patella Joint R patella mobs Direction Sup<->Inf, Lat Grade III Body Position Supine Neuro Re-Education Treatment Balance Activities Stride stance Details Stride stance Surface Two AirEx PT-OP-T Assessment and Plan Start: 03/31/24 15:21 Freq: Status: Active Protocol: Document 04/03/24 14:30 DCW (Rec: 04/03/24 15:16 DCW [id number]) Physical Therapy Assessment Impairments Impairments Functional Activities, Functional Mobility,Gait,Pain, ROM,Soft Tissue Mobility, Strength,Tone Goals Two Impairment Pt experiences increased leg pain is walking more than 45 minutes Fdc Goal (LTG) Pt to return to walking four miles daily without knee pain in order to return to increased activity levels she began following Gastric Bypass surgery. LTG Duration 05/31/24 One Impairment Pt does not have an appropriate home exercise program Short Term Goal (STG) Pt to be independent and compliant with an appropriate HEP STG Duration 04/30/24 Assessment Summary Assessment Pt started today's session feeling much better, unfortunately put a little too much force through knee trying stationary bike, slightly mmore sore afterward, little bit more pain with activity. By end, was tolerating treatment well, did step-ups, standing HS curls, and BOSU lunges pain-free. Physical Therapy Plan Frequency and Duration Frequency of Treatment 2x/Week Plan of Care Start Date 03/31/24 Plan of Care End Date 05/31/24 Therapeutic Interventions Therapeutic Interventions Balance Training,Gait Training ,Home Exercise Program,Joint Mobilizations,Manual Therapy, Neuromuscular Re-education, Patient/Caregiver Education, Self-Care/Home Management,Soft Tissue Mobilization, Therapeutic Activities, Therapeutic Exercises Modalities Cold Pack/Ice Massage,Electric Stimulation,Hot Packs, Ultrasound Next Visit Focus/Plan Next Note Type Treatment Note Next Visit Plan Quad/hamstring strengthening, knee stabilization
--- NOTE | 2024-04-07 08:14 | PT.OTN ---
Current Diagnoses Other meniscus derangements, unspecified medial meniscus, right knee (04/07/24) Pain in right knee (04/07/24) Stiffness of left knee, not elsewhere classified (04/07/24) Physical Therapy Treatment Note PT-OP-A Visit Information Start: 03/31/24 15:21 Freq: Status: Active Protocol: Document 04/07/24 07:29 SP (Rec: 04/07/24 08:23 SP [id number]) Out-Patient Physical Therapy Visit Information Visit Information Visit Type Treatment Note Visit Start Time 07:30 Visit Stop Time 08:14 Visit Number 3 Number of MANAGER REGIONAL Visits 1 Evaluation Information Evaluation Date 03/31/24 PT-OP-B Current Condition Start: 03/31/24 15:21 Freq: Status: Active Protocol: Document 03/31/24 12:00 DCW (Rec: 03/31/24 15:42 DCW [id number]) Current Condition History of Current Condition Onset Date 10 year history Current Complaints right knee pain/stiffness, history of meniscus tear History of Current Condition Pt is a 53 year old female presenting with new onset of pain 10 years s/p right medial meniscus tear. Pt reports initial tear ten years ago did well with PT, recovered without need of surgical intervention, and has been doing well overall. Has recently undergone gastric bypass, and has been active walking, has lost weight. Unfortunately, ~1 month ago, when sleeping in bed, pt somehow bent her right leg up under herself and experienced an increase in right knee pain . Pt reports pain is very similar to pain ten years ago. Immediately after injury, pt notes her knee was buckling, however it has no longer been giving out, but has been feeling like it locks up. Increased pain with standing > 45 minutes, has impacted her continuing walking, although currently keeps walking even after pain begins. Hoping for a repeat of ten years ago when she was able to resolve her pain with help of PT. Admits that it does seem like the pain has been increasing in severity over the past month Treatment Goals Patient/Caregiver Goals Return to pain-free walking to keep up with exercise plan to continue weight loss journey s/p gastric bypass PT-OP-C Subjective Start: 03/31/24 15:21 Freq: Status: Active Protocol: Document 04/07/24 07:29 SP (Rec: 04/07/24 08:23 SP [id number]) OP-PT Subjective Patient Comments Patient Comments Pt reports found stretching R knee and hip seated with ankle crossed over opposite leg helped lessen tension knee. PT-OP-F Manual Assessment Start: 03/31/24 15:21 Freq: Status: Active Protocol: Document 03/31/24 12:00 DCW (Rec: 03/31/24 15:42 DCW [id number]) Manual Assessments Soft Tissue Assessment Soft Tissue Mobility Assessment Mild tenderness to palpation along right medial joint line, no notable edema/joint effusion PT-OP-K Range of Motion Start: 03/31/24 15:21 Freq: Status: Active Protocol: Document 03/31/24 12:00 DCW (Rec: 03/31/24 15:42 DCW [id number]) Knee Goniometric Range of Motion Knee Left Patient Position Supine Flexion Active (degrees) 134 Extension Active (degrees) 0 Right Patient Position Supine Flexion Active (degrees) 103 Extension Active (degrees) 0 PT-OP-L Special Tests Start: 03/31/24 15:21 Freq: Status: Active Protocol: Document 03/31/24 12:00 DCW (Rec: 03/31/24 15:42 DCW [id number]) Special Tests Knee Special Tests Varus- 25 Degrees Test Results Medial joint pain Valgus- 25 Degrees Test Results Negative Posterior Draw Test Results Negative Patellar Grind Test Test Results Negative Patella Tap Test Results Negative Rosales Test Test Results Positive Right Bounce Home Test Results Negative Apprehension Test Test Results Negative Apley's Compression Test Results Positive Right Anterior Draw Test Results Negative PT-OP-M Strength Start: 03/31/24 15:21 Freq: Status: Active Protocol: Document 03/31/24 12:00 DCW (Rec: 03/31/24 15:42 DCW [id number]) Knee Strength Knee Manual Muscle Testing Right Flexion (S2) 4+ Good+ Extension (L3) 4 Good PT-OP-Q Treatments Start: 03/31/24 15:21 Freq: Status: Active Protocol: Document 04/07/24 07:29 SP (Rec: 04/07/24 08:23 SP [id number]) Therapeutic Exercises Sitting Exercises stretching Sitting Exercise Name HS static & AP dynamic, hip IR & ER stretch Side bilateral Reps/Minutes 2 reps 30 sec each Comments good feedback response lessens tension on R knee for sitting LAQ Sitting Exercise Name trialed in PT Side right Resistance 5# leg wt Reps/Minutes 5 SH x10 Comments midrange good mid quad tiring Hamstring Curl Sitting Exercise Name HS Curl Side right Resistance Lv 2 loop at ankles Reps/Minutes x10 pause, 1 SH Comments good HS tiring Standing Exercises Hamstring Curl Standing Exercise Name Hamstring Curl Side bilateral Resistance 5# leg wt, Tb #2 aqua at ankles Reps/Minutes 1 SH: 2x10 leg wt, x10 R /c TB #2 at ankle/under opp foot Comments cued slow pnfree range- good mus tiring Lunge Standing Exercise Name Step lunge Side bilateral Equipment Used BOSU Reps/Minutes R x10, alternate x10 Comments cued knee behind & with forefoot, tall/rhomb fac midline trunk stab Wall Squat Standing Exercise Name 1. Wall Squat 2. Wall Sit Reps/Minutes 2x10, Hold sit: 10 sec x2 then 15 sec Comments cued heel drive and glut facil , improved more mid quad vs distal pat tendon Other Exercises self STMs Other Exercise Name added to HEP for home/work Side right Resistance quad, ITB, HS, calf Equipment Used rolling pin Comments good feedback response Resisted Ambulation Other Exercise Name Resisted side-stepping Resistance Green TB #3 at ankles Reps/Minutes 15 ft x3 laps Comments cued midline trunk, trial LE clearance Step-ups Other Exercise Name SL repeated Step-ups Side right Equipment Used 8 step Reps/Minutes x10 Comments med/lat small wobble but midline self correction- heel glut drive-pnfree PT-OP-T Assessment and Plan Start: 03/31/24 15:21 Freq: Status: Active Protocol: Document 04/07/24 07:29 SP (Rec: 04/07/24 08:23 SP [id number]) Physical Therapy Assessment Goals Two Impairment Pt experiences increased leg pain is walking more than 45 minutes Impairment . Chcf Goal (LTG) Pt to return to walking four miles daily without knee pain in order to return to increased activity levels she began following Gastric Bypass surgery. LTG Duration 05/31/24 One Impairment Pt does not have an appropriate home exercise program Impairment . Short Term Goal (STG) Pt to be independent and compliant with an appropriate HEP STG Duration 04/30/24 Assessment Summary Assessment Pt tolerated tx well. Focused on quad and HS strengthening with theraband for incorporation use at work, sits alot. Reported muscle tiring, painfree throughout tx . Cues for knee alignment during step ups and lunges today, improved self correction awareness. Physical Therapy Plan Frequency and Duration Frequency of Treatment 2x/Week Plan of Care Start Date 03/31/24 Plan of Care End Date 05/31/24 Therapeutic Interventions Therapeutic Interventions Balance Training,Gait Training ,Home Exercise Program,Joint Mobilizations,Manual Therapy, Neuromuscular Re-education, Patient/Caregiver Education, Self-Care/Home Management,Soft Tissue Mobilization, Therapeutic Activities, Therapeutic Exercises Modalities Cold Pack/Ice Massage,Electric Stimulation,Hot Packs, Ultrasound Next Visit Focus/Plan Next Note Type Treatment Note Next Visit Plan HEP review as needed. Next tx continue uneven surface balance activities and SL stability. Add sit stands. POC: Quad/hamstring strengthening, knee stabilization
--- NOTE | 2024-06-12 15:43 | PT.OPDS ---
Current Diagnoses Other meniscus derangements, unspecified medial meniscus, right knee (04/07/24) Pain in right knee (04/07/24) Stiffness of left knee, not elsewhere classified (04/07/24) Visit Care Team Role Provider Type MARICEL Ruvalcaba Attending Provider [employer] Family Provider Primary Care Provider Referring Provider Specialty: Medical Address: [address] [place] [address], [facility] Email: [email or web address] Visit Number Visit Number 3 Discharge Summary PT-OP-B Current Condition Start: 03/31/24 15:21 Freq: Status: Active Protocol: Document 03/31/24 12:00 DCW (Rec: 03/31/24 15:42 DCW [id number]) Current Condition History of Current Condition Onset Date 10 year history Current Complaints right knee pain/stiffness, history of meniscus tear History of Current Condition Pt is a 53 year old female presenting with new onset of pain 10 years s/p right medial meniscus tear. Pt reports initial tear ten years ago did well with PT, recovered without need of surgical intervention, and has been doing well overall. Has recently undergone gastric bypass, and has been active walking, has lost weight. Unfortunately, ~1 month ago, when sleeping in bed, pt somehow bent her right leg up under herself and experienced an increase in right knee pain . Pt reports pain is very similar to pain ten years ago. Immediately after injury, pt notes her knee was buckling, however it has no longer been giving out, but has been feeling like it locks up. Increased pain with standing > 45 minutes, has impacted her continuing walking, although currently keeps walking even after pain begins. Hoping for a repeat of ten years ago when she was able to resolve her pain with help of PT. Admits that it does seem like the pain has been increasing in severity over the past month Treatment Goals Patient/Caregiver Goals Return to pain-free walking to keep up with exercise plan to continue weight loss journey s/p gastric bypass PT-OP-C Subjective Start: 03/31/24 15:21 Freq: Status: Active Protocol: Document 04/07/24 07:29 SP (Rec: 04/07/24 08:23 SP [id number]) OP-PT Subjective Patient Comments Patient Comments Pt reports found stretching R knee and hip seated with ankle crossed over opposite leg helped lessen tension knee. PT-OP-F Manual Assessment Start: 03/31/24 15:21 Freq: Status: Active Protocol: Document 03/31/24 12:00 DCW (Rec: 03/31/24 15:42 DCW [id number]) Manual Assessments Soft Tissue Assessment Soft Tissue Mobility Assessment Mild tenderness to palpation along right medial joint line, no notable edema/joint effusion PT-OP-K Range of Motion Start: 03/31/24 15:21 Freq: Status: Active Protocol: Document 03/31/24 12:00 DCW (Rec: 03/31/24 15:42 DCW [id number]) Knee Goniometric Range of Motion Knee Left Patient Position Supine Flexion Active (degrees) 134 Extension Active (degrees) 0 Right Patient Position Supine Flexion Active (degrees) 103 Extension Active (degrees) 0 PT-OP-L Special Tests Start: 03/31/24 15:21 Freq: Status: Active Protocol: Document 03/31/24 12:00 DCW (Rec: 03/31/24 15:42 DCW [id number]) Special Tests Knee Special Tests Varus- 25 Degrees Test Results Medial joint pain Valgus- 25 Degrees Test Results Negative Posterior Draw Test Results Negative Patellar Grind Test Test Results Negative Patella Tap Test Results Negative Rosales Test Test Results Positive Right Bounce Home Test Results Negative Apprehension Test Test Results Negative Apley's Compression Test Results Positive Right Anterior Draw Test Results Negative PT-OP-M Strength Start: 03/31/24 15:21 Freq: Status: Active Protocol: Document 03/31/24 12:00 DCW (Rec: 03/31/24 15:42 DCW [id number]) Knee Strength Knee Manual Muscle Testing Right Flexion (S2) 4+ Good+ Extension (L3) 4 Good PT-OP-T Assessment and Plan Start: 03/31/24 15:21 Freq: Status: Active Protocol: Document 06/12/24 15:42 DCW (Rec: 06/12/24 15:43 DCW [id number]) Physical Therapy Assessment Assessment Summary Assessment Pt canceled last two scheduled visits, did not schedule any further follow-ups. Has now not been seen in more than two months, will require a new referral in order to return to skilled therapy. Pt will be discharged at this time. Physical Therapy Plan Discharge Physical Therapy Discharge Reasons No Longer Attending PT
== END 2024-06-15 14:26 | disposition home or self-care (01) ==
LOC: PHYS 07:30
PROVIDERS: Family Provider Registered Nurse Diabetes Educator; PCP Registered Nurse Diabetes Educator; Referring Provider Registered Nurse Diabetes Educator; Visit Provider Registered Nurse Diabetes Educator
DX: M25.561 Pain in right knee (principal); M25.662 Stiffness of left knee, not elsewhere classified; M23.303 Other meniscus derangements, unspecified medial meniscus, right knee
CPT/HCPCS: 97110; 97140; 97161

== ENCOUNTER → 2024-08-04 07:02 | Outpatient (CLI) | payer OTHER, SELFPAY ==
[2024-08-04 08:24] LABS: Add Manual Diff / Slide Review NO; Basophils Absolute Auto 0 /uL (0-100); Basophils Percent Auto 0.5 % (0-2); Eosinophils Absolute Auto 200 /uL (0-450); Eosinophils Percent Auto 2.5 % (2-4); Hematocrit 42.8 % (36-46); Hemoglobin 14.8 g/dL (12.0-16.0); Lymphocytes Absolute Auto 2400 /uL (1100-4500); Lymphocytes Percent Auto 32.9 % (25-40); Mean Corpuscular HGB Conc 34.6 % (30-36); Mean Corpuscular Hemoglobin 29.1 PG (26-34); Mean Corpuscular Volume 84.2 fL (80-100); Monocytes Absolute Auto 500 /uL (0-900); Monocytes Percent Auto 6.3 % (3-14); Neutrophils Absolute Auto 4300 /uL (1500-7000); Neutrophils Percent Auto 57.8 % (50-75); Platelet Count 374 X10^3/uL (150-400); Red Blood Cell Count 5.08 X10^6/uL (4.0-5.2); Red Cell Distribution Width 13.3 % (11.6-14.8); White Blood Cell Count 7.4 X10^3/uL (4.5-11.0)
[2024-08-04 08:47] LABS: Alanine Aminotransferase 55 IU/L (<35); Albumin 4.4 g/dL (3.5-5.0); Albumin Globulin Ratio 1.7 (1.0-2.8); Alkaline Phosphatase 94 U/L (38-126); Aspartate Aminotransferase 37 IU/L (14-36); BUN Creatinine Ratio 26.2 (6-22); Bilirubin Total 0.9 mg/dL (0.2-1.3); Blood Urea Nitrogen 16 mg/dL (7-17); Carbon Dioxide 25 mmol/L (22-32); Chloride 106 mmol/L (98-107); Cholesterol 224 mg/dL (140-199); Estimated Glomerular Filt Rate > 60 mL/min (>60); Globulin 2.6 g/dL (1.7-4.1); Glucose 88 mg/dL (70-100); HDL Cholesterol 60 mg/dL (40-60); HEMOLYSIS < 15 (0-50); LDL Cholesterol Calculated 150 mg/dL (<100); Magnesium 1.9 mg/dL (1.6-2.3); Potassium 4.1 mmol/L (3.4-5.1); Sodium 140 mmol/L (137-145); Triglycerides 72 mg/dL (35-150)
[2024-08-04 08:51] LABS: HEMOLYSIS < 15 (0-50); Iron 104 ug/dL (37-170)
[2024-08-04 09:00] LABS: Vitamin D 25 Hydroxy (D3) 48.8 ng/mL (30.0-100.0)
[2024-08-04 09:02] LABS: Percent Iron Saturation 42 % (15-50); Total Iron Binding Capacity 246 ug/dL (265-497); Transferrin 197 mg/dL (206-381)
[2024-08-04 09:50] LABS: Vitamin B12 851 pg/mL (239-931)
[2024-08-05 09:12] LABS: Parathyroid Hormone Int 36 pg/mL (15-65)
[2024-08-05 10:09] LABS: Ionized Calcium 5.3 mg/dL (4.5-5.6)
[2024-08-10 10:14] LABS: Vitamin B1 175.4 nmol/L (66.5-200.0)
== END ==
PROVIDERS: Family Provider Registered Nurse Diabetes Educator; PCP Registered Nurse Diabetes Educator; Referring Provider Surgery; Visit Provider Surgery
DX: Z98.84 Bariatric surgery status (principal); K91.2 Postsurgical malabsorption, not elsewhere classified; R73.03 Prediabetes
CPT/HCPCS: 36415; 80053; 80061; 82306; 82330; 82607; 82746; 83036; 83540; 83550; 83735; 83970; 84425; 85025

== ENCOUNTER → 2024-08-07 16:12 | Outpatient (CLI) | payer OTHER, SELFPAY ==
[2024-08-24 18:38] LABS: Hemolysate >620.0 ng/mL (Not Estab.)
== END ==
PROVIDERS: Family Provider Registered Nurse Diabetes Educator; PCP Registered Nurse Diabetes Educator
DX: Z98.84 Bariatric surgery status (principal); K91.2 Postsurgical malabsorption, not elsewhere classified; R73.03 Prediabetes
CPT/HCPCS: 82747; 85014

== ENCOUNTER → 2024-08-25 18:13 | Outpatient (CLI) | payer OTHER, SELFPAY | PROVIDERS: Family Provider Registered Nurse Diabetes Educator; PCP Registered Nurse Diabetes Educator; Referring Provider Internal Medicine; Visit Provider Internal Medicine | DX: Z23 Encounter for immunization (principal) | CPT/HCPCS: 90471; 90656 ==

== ENCOUNTER → 2024-12-21 07:42 | Outpatient (CLI) | payer OTHER, SELFPAY ==
--- NOTE | 2024-12-21 07:43 | DI.MG.S_ITS ---
BILATERAL DIGITAL SCREENING MAMMOGRAM 3D/2D WITH CAD: 12/21/2024 CLINICAL: Routine screening. Comparison is made to exams dated: 12/10/2023 mammogram, 12/08/2022 mammogram, and 06/18/2017 mammogram - [facility]. There are scattered areas of fibroglandular density (category b / 25%-50% glandular tissue). Current study was also evaluated with a Computer Aided Detection (CAD) system. There is an oval equal density focal asymmetry with an indistinct margin in the left breast at 3 o'clock posterior depth. This is more prominent. No other significant masses, calcifications, or other findings are seen in either breast. IMPRESSION: INCOMPLETE: NEED ADDITIONAL IMAGING EVALUATION The oval equal density focal asymmetry in the left breast most likely is a cyst or a lymph node and is indeterminate. Additional views with possible ultrasound are recommended. Based on the Tyrer Cuzick model (a risk assessment model) the patient's lifetime risk is 6.0% and her 10 year risk is 1.6%. According to the ACR, ACS, and NCCN guidelines, an annual breast MRI exam along with mammogram is recommended if the patient's lifetime risk is 20% or greater. This exam was interpreted at Station ID: [id number]. NOTE: For mammograms, a report in lay terms will be sent to the patient. Approximately 15% of breast malignancies will not be visualized mammographically. In the management of a palpable breast mass, a negative mammogram must not discourage biopsy of a clinically suspicious lesion. Electronically Signed By: Neida flores/derrick:12/21/2024 17:22:51 letter sent: Additional Imaging Needed ACR BI-RADS Category 0: Incomplete: Need Additional Imaging Evaluation
== END ==
LOC: MAMMO 07:42
PROVIDERS: Family Provider Registered Nurse Diabetes Educator; PCP Registered Nurse Diabetes Educator; Referring Provider Registered Nurse Diabetes Educator; Visit Provider Registered Nurse Diabetes Educator
DX: Z12.31 Encounter for screening mammogram for malignant neoplasm of breast (principal)
CPT/HCPCS: 77063; 77067

== ENCOUNTER → 2025-01-23 07:52 | Outpatient (CLI) | payer OTHER, SELFPAY ==
--- NOTE | 2025-01-23 07:53 | DI.US.S_ITS ---
US breast LT limited, MM special view LT: 01/23/2025 BI-RADS: 2 CLINICAL: 54-year old female for left diagnostic mammogram and left diagnostic breast ultrasound that is a recall from screening, bilateral, digital, tomosynthesis, w/mammo cad on 12/21/2024. Tyrer-Cuzick lifetime risk of 6.0%. No personal or first-degree family history of breast cancer. PRIOR EXAMS 12/21/2024, 12/10/2023, 12/08/2022, 06/18/2017, 06/24/2015. MAMMOGRAPHY TECHNIQUE: 2D and 3D (tomosynthesis) digital mammographic views obtained, with additional images as needed for full coverage. Current study was also evaluated with a Computer Aided Detection (CAD) system. ULTRASOUND TECHNIQUE Real-time reyes scale imaging of the area of clinical interest was performed with image documentation. TARGETED Left Breast Ultrasound: Real-time ultrasound exam was performed focused to area of clinical and/or imaging concern. DENSITY Left: B. There are scattered areas of fibroglandular density. MAMMOGRAPHY FINDINGS Left (finding-1): Outer at 3:00, Middle depth, measuring 1.1 cm: Correlating with findings on screening mammogram there is a circumscribed, oval, equal-density mass present. The mass is bilobed. ULTRASOUND FINDINGS Left (finding-1): Outer at 3:00, 8 cm from nipple, measuring 0.7 x 0.5 x 1.1 cm: Correlating with findings on mammogram there is a cluster of macrocysts present. IMPRESSION: Left * No evidence of malignancy with benign findings. RECOMMENDATIONS Bilateral * Annual screening mammography in eleven months. OVERALL ASSESSMENT CATEGORY BI-RADS-2: Benign. The [employer] recommends annual screening mammography beginning at age 40 for women with average risk of breast cancer. ELECTRONICALLY SIGNED: Tammy Bhagat M.D. on 01/23/2025 at 11:19:27 AM PT Interpreting Station ID: [id number]
== END ==
PROVIDERS: Family Provider Registered Nurse Diabetes Educator; PCP Registered Nurse Diabetes Educator; Referring Provider Registered Nurse Diabetes Educator; Visit Provider Registered Nurse Diabetes Educator
DX: R92.8 Other abnormal and inconclusive findings on diagnostic imaging of breast (principal); N60.02 Solitary cyst of left breast
CPT/HCPCS: 76642; 77065; G0279